=== PATIENT | male | born 1970 | race African-American/Black ===

== ENCOUNTER 2020-03-23 09:30 | Emergency (ER) | payer OTHER ==
--- OUTSIDE RECORDS SUMMARY | 2020-03-23 09:46 | XMS REPORT | Clinical Summary ---
:1970 Author Organization [facility] Address [address] [place] [address] Care Team Providers Name Role Phone Asked, Pcp Primary Care Provider Unavailable Allergies Active Allergy Reactions Severity Noted Date Comments Metoclopramide Hcl Other (See Comments) High 10/11/2017 H allucinations & Disorientation "makes me crazy" Medications Medication Sig Dispensed Refills Start Date End Date Status clonIDINE (CATAPRES) 0.1 Take 0.1 mg by 0 Active MG tablet mouth 3 (three) times a day. carvedilol (COREG) 25 MG Take 25 mg by 0 Active tablet mouth 2 (two) times a day. ergocalciferol (VITAMIN Take 50,000 0 Active D2) 50,000 unit capsule Units by mouth once a week. (on Friday) mycophenolate (CELLCEPT) Take 1,000 mg by 0 Active 500 mg tablet mouth 2 (two) times a day. tacrolimus (PROGRAF) 0.5 Take 2.5 mg by 0 Active MG capsule mouth 2 (two) times a day. insulin DETEMIR (LEVEMIR Inject 25 Units 15 mL 1 8 Active FLEXTOUCH U-100 INSULN) under the skin 100 unit/mL (3 mL) daily before insulin pen breakfast. insulin lispro (HUMALOG) Inject 4 Units 15 mL 1 12/21/2017 Active 100 unit/mL injection under the skin 3 pen (three) times a day before meals. Active Problems Problem Noted Date Diabetic ketoacidosis without coma associated with typ e 2 diabetes 12/19/2017 mellitus Vitamin D deficiency 10/13/2017 Hypertensive emergency 10/11/2017 Abdominal pain 10/11/2017 Nausea and vomiting 10/11/2017 Renal transplant recipient 10/11/2017 Diabetic ketoacidosis without coma associated with typ e 2 diabetes 10/11/2017 mellitus S/P kidney transplant 08/19/2016 Type 2 diabetes mellitus with other specified complica tion 08/19/2016 Hypertension 08/19/2016 Umbilical hernia 08/19/2016 Immunizations Name Administration Dates Next Due FLUCELVAX QUAD PF 10/13/2017 Family History Medical History Relation Name Comments Diabetes Father Hypertension Father Diabetes Maternal Grandmother Diabetes Mother Hypertension Mother Relation Name Status Comments Father Maternal Grandmother Mother Social History Tobacco Use Types Packs/Day Years Used Date Passive Smoke Exposure - Never Smoker Sex Assigned at Date Recorded Not on file Job Start Date Occupation Industry Not on file Not on file Not on file Travel History Travel Start Travel End No recent travel history available. Last Filed Vital Signs Not on file Plan of Treatment Health Maintenance Due Date Last Done Comments DIABETIC RETINAL EYE EXAM 1970 DIABETIC FOOT EXAM 1980 INFLUENZA VACCINE 04/01/2020 10/13/2017, 07/02/2013 Results Not on fileafter 03/23/2019 Insurance Payer Benefit Plan / Subscriber ID Effective Dates Phone Addre ss Type Group MEDICARE MEDICARE PART xxxxxxxxxx 2012-[place], [place] Medicare A AND B t Listen Up [employer] FIRST xxxxxxxxxxx 2015-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
--- OUTSIDE RECORDS SUMMARY | 2020-03-23 09:46 | XMS REPORT | Continuity of Care Document ---
:1970 Author Organization [facility] t Address [address] [place] [address] Care Team Providers Name Role Phone Asked, Pcp Primary Care Physician Unavailable Payers Payer Name Policy Type Policy Number Effective Date Expiration Date S ource Problems Condition Condition Condition Status Onset Resolution Last Treating Co mments Source Name Details Category Date Date Treatment Clinician Date Diabetic Diabetic Disease Active [place] ketoac[place] ketoacidos 4-20 Me [facility] is without is without 00:00: st coma coma 00 associated associated with type with type 2 diabetes 2 diabetes mellitus mellitus Vitamin D Vitamin D Disease Active [facility] deficiency deficiency 2-12 Me thodi 00:00: st 00 Hypertensi Hypertensi Disease Active [facility] [place] ve ve 2-10 [facility] emergency emergency 00:00: st 00 Abdominal Abdominal Disease Active [facility] pain pain 2-10 [facility] 00:00: st 00 Nausea and Nausea and Disease [facility] 00 Renal Renal Disease Active [place] transplant transplant 2-10 Me thodi recipient recipient 00:00: st 00 Diabetic Diabetic Disease Active [place] ketoacidos ketoacidos 2-10 Me thodi is without is without 00:00: st coma coma 00 associated associated with type with type 2 diabetes 2 diabetes mellitus mellitus S/P kidney S/P kidney Disease Active 2015-09 [facility] [place] transplant transplant 2-19 Me thodi 00:00: st 00 Type 2 Type 2 Disease Active 2015-09 [facility] diabetes diabetes -19 [facility] mellitus mellitus 00:00: st with other with other 00 specified specified complicati complicati on on Hypertensi Hypertensi Disease Active 2015-09 [facility] [place] on on 10-20 [facility] 00:00: st 00 Umbilical Umbilical Disease Active 2015-09 Vera marisoln hernia hernia 10-20 [facility] 00:00: st 00 Allergies, Adverse Reactions, Alerts Allergy Allergy Status Severity Reaction(s) Onset Inactive Treating Comm ents Source Name Type Date Date Clinician No Known DA Active U 2017-09 [facility] Allergie 0-15 Clear s 00:00: [place] 00 [facility] Metoclop Propensi Active Other (See Hallucina [place] ramide ty to Comments) 2- tions & Method i Hcl adverse 00:00: Disorient st reaction 00 ation s to "makes me drug crazy" Family History Family Member Diagnosis Comments Start Date Stop Date Source Natural father Diabetes [facility] Natural father Hypertension [place] [facility] Maternal grandmother Diabetes [place] [facility] Natural mother Diabetes [place] [facility] Natural mother Hypertension [place] [facility] Social History Social Habit Start Date Stop Date Quantity Comments Source Sex Assigned At Vera omid Boo Smoking Status Start Date Stop Date Source Never smoker [place] [facility] Medications Ordered Filled Start Stop Current Ordering Indication Dosage Frequency Signature Comments Components Source Medication Medication Date Date Medication? Clinician (SIG) Name Name clonIDINE Yes .1mg [id number] Take 0.1 [place] (CATAPRES) 4-22 [id number] mg by Ia thodi 0.1 MG 14:16: 3D mouth 3 st tablet 04 (three) times a day. carvedilol Yes 25mg Q.5D Take 25 mg H [place] (COREG) 25 4-22 by mouth 2 Met hodi MG tablet 14:16: (two) st 04 times a day. ergocalcife Yes [id number] Q7D Take [facility] ton rol 4-22 50,000 [facility] (VITAMIN 14:16: Units by st D2) 50,000 04 mouth once unit a week. capsule (on Friday) mycophenola Yes 1000mg Q.5D Take 1,000 [place] te 4-22 mg by [facility] (CELLCEPT) 14:16: mouth 2 st 500 mg 04 (two) tablet times a day. tacrolimus Yes 2.5mg Q.5D Take 2.5 [place] (PROGRAF) 4-22 mg by [facility] 0.5 MG 14:16: mouth 2 st capsule 04 (two) times a day. insulin 2017-0 Yes 25U QD Inject 25 [place] DETEMIR 4-22 Units [facility] (LEVEMIR 00:00: under the st FLEXTOUCH 00 skin daily U-100 before INSULN) 100 breakfast. unit/mL (3 mL) insulin pen insulin Yes 4U [id number] Inject 4 [place] lispro 4-22 [id number] Units Method i (HUMALOG) 00:00: 3D under the st 100 unit/mL 00 skin 3 injection (three) pen times a day before meals. Immunizations Ordered Immunization Filled Immunization Date Status Commen ts Source Name Name YARITZA CHICAS 2017-10-13 [facility] 00:00:00 Denominational Procedures This patient has no known procedures. Plan of Care Planned Activity Planned Date Details Comments Source Future Scheduled 2020-04-01 INFLUENZA VACCINE [place] [facility] 00:00:00 [code = INFLUENZA VACCINE] Future Scheduled 1980 DIABETIC FOOT EXAM [place] [facility] 00:00:00 [code = DIABETIC FOOT EXAM] Future Scheduled 1970 DIABETIC RETINAL EYE Veraabdirashid anne [facility]ational Test 00:00:00 EXAM [code = DIABETIC RETINAL EYE EXAM] Results This patient has no known results.
[2020-03-23] MEDS ORDERED: MORPHINE 4 MG/ML SYR ONE (10:02)
[2020-03-23] MEDS ORDERED: DIAZEPAM 5 MG TABLET ONE (10:02)
[2020-03-23] MEDS ORDERED: ONDANSETRON 4 MG (ODT) TAB ONE (10:02)
--- NOTE | 2020-03-23 10:22 | RAD REPORT ---
EXAM DESCRIPTION: CT - Stone Protocol - 03/23/2020 10:10 am CLINICAL HISTORY: Flank pain. back pain COMPARISON: CT ABDOMEN PELVIS WO CONTRAST dated 07/30/2015 TECHNIQUE: Axial images were obtained without oral or IV contrast. Lack of contrast limits solid org an and vascular assessment. The [id number]-cz-zizm spans the entirety of the system partially obscuring uppermost abdomen and lung bases. Coronal reformatted images were obtained and reviewed. All CT scans are performed using dose optimization technique as appropriate and may include automated exposure control or mA/KV adjustment according to patient size. FINDINGS: Ground-glass opacities are present in both lung bases. Imaged portions of the liver and spleen show no suspicious findings on non-contrast imaging.Cholecyst ectomy clips. The pancreas and adrenal glands are normal. No pathologic lymphadenopathy in the abdome n or pelvis. Large fat containing ventral hernia. Right lower quadrant transplant kidney is seen without hydronephrosis. Atrophic iroquois kidneys. No bowel obstruction, free air, free fluid or abscess. Appendectomy.Moderate atherosclerosis. No significant bony abnormality. IMPRESSION: Right lower quadrant transplant kidney without hydronephrosis or stone. Ground-glass opacities in both lung bases are suspicious for COVID infection. Suggest clinical correl ation. Large fat containing ventral hernia.
--- NOTE | 2020-03-23 11:07 | EDPHYS ---
Physician Documentation [facility] Name: Pj Zacarias Jr Age: 49 yrs Sex: Male : 1970 Arrival Date: 03/23/2020 Time: 09:33 Bed 5 Private MD: ED Physician Jann Hampton HPI: 03/23 09:49 This 49 yrs old Black Male presents to ER via Ambulatory with complaints of Back Pain. jmm 09:49 The patient presents with pain that is acute. Onset: The symptoms/episode jmm began/occurred today. The pain radiates to the right leg and left leg. Associated signs and symptoms: Pertinent negatives: incontinence, weakness. Modifying factors: The patient symptoms are alleviated by nothing, the patient symptoms are aggravated by movement. This is a 59 year old male with a history of dm, htn, that presents to the ED with complaints of lower back pain which radiates down both his legs. Denies bowel or bladder issues. Denies fever, abdominal pain or vomiting. . Historical: - Allergies: 09:38 NKA; sv - PMHx: 09:38 Diabetes - NIDDM; Gastroparesis; Hypertension; sv - PSHx: 09:38 Cholecystectomy; Knee surgery; Appendectomy; kidney transplant; sv - Immunization history:: Adult Immunizations up to date. - Social history:: Smoking status: Patient denies any tobacco usage or history of. ROS: 09:49 Constitutional: Negative for fever, chills, and weight loss, Cardiovascular: Negative jmm for chest pain, palpitations, and edema, Respiratory: Negative for shortness of breath, cough, wheezing, and pleuritic chest pain. 09:49 Back: Positive for pain with movement. 09:49 All other systems are negative. Exam: 09:49 Constitutional: This is a well developed, well nourished patient who is awake, alert, jmm and in no acute distress. Head/Face: atraumatic. Eyes: EOMI, no conjunctival erythema appreciated ENT: Moist Mucus Membranes Neck: Trachea midline, Supple Chest/axilla: Normal chest wall appearance and motion. Cardiovascular: Regular rate and rhythm. No edema appreciated Respiratory: Normal respirations, no respiratory distress appreciated Abdomen/GI: Non distended, soft 09:49 Skin: General appearance color normal MS/ Extremity: Moves all extremities, no obvious deformities appreciated, no edema noted to the lower extremities Neuro: Awake and alert, normal gait Psych: Behavior is normal, Mood is normal, Patient is cooperative and pleasant 09:49 Back: no midline tenderness, right and left paraspinal lumbar region tenderness. 09:49 Neuro: extensor hallucis longus intact bilaterally. 09:49 Psych: Behavior/mood is pleasant, cooperative. Vital Signs: 09:42 BP 163 / 75; Pulse 90; Resp 16; Temp 98.3(TE); Pulse Ox 98% on R/A; Weight 68.04 kg; ss Height 5 ft. 6 in. (167.64 cm); Pain 10/10; 10:15 BP 141 / 79; Pulse 80; Resp 16; Pulse Ox 98% ; sv 11:16 BP 138 / 77; Pulse 77; Resp 16; Pulse Ox 99% ; sv 09:42 Body Mass Index 24.21 (68.04 kg, 167.64 cm) ss MDM: 09:45 Patient medically screened. [facility] 11:05 Data reviewed: vital signs, nurses notes. Counseling: I had a detailed discussion with [facility] the patient and/or guardian regarding: the historical points, exam findings, and any diagnostic results supporting the discharge/admit diagnosis, radiology results, the need for outpatient follow up, to return to the emergency department if symptoms worsen or persist or if there are any questions or concerns that arise at home. ED course: Back pain has decreased in the ED. CT chest revealed ground glass opacities bilaterally. Patient currently has no fever or resp symptoms. Patient is given strict return precautions. Patient understood and agrees with the plan of care. . 03/23 10:42 Order name: COVID-19 [facility] 03/23 09:48 Order name: CT Stone Protocol; Complete Time: 10:24 [facility] Administered Medications: 10:01 Drug: morphine 4 mg {Note: rass0.} Route: IM; Site: right deltoid; sv 11:17 Follow up: Response: No adverse reaction; RASS: Alert and Calm (0) sv 10:01 Drug: Zofran (Ondansetron) 4 mg Route: PO; sv 11:17 Follow up: Response: No adverse reaction sv 10:01 Drug: Valium 5 mg Route: PO; sv 11:17 Follow up: Response: No adverse reaction sv Disposition: 11:57 Co-signature as Attending Physician, Jann Hampton MD I agree with the assessment and kdr plan of care. Disposition: 03/23/20 11:07 Discharged to Home. Impression: Low back pain. - Condition is Stable. - Discharge Instructions: COVID-19, Back Pain, Adult. - Prescriptions for Valium 5 mg Oral Tablet - take 1 tablet by ORAL route every 8 hours As needed; 20 tablet. - Medication Reconciliation Form, Thank You Letter, Antibiotic Education, Prescription Opioid Use form. - Follow up: Private Physician; When: 2 - 3 days; Reason: Recheck today's complaints, Continuance of care, Re-evaluation by your physician. Addendum: 03/27/2020 08:36 Addendum: Phone number not working, able to contact , notified of positive COVID-19 r n test, states at home, generalized weakness and mild sob. Told if worsens to seek care, given transplant status, may require admission.. Signatures: Dispatcher [employer] EDJaneth Olivia RN RN sv Rittger, Kevin, MD MD kdr Mickail, Joel, PA PA jmm Nieto, Roman, MD MD rn Maryan Seo RN RN ss Corrections: (The following items were deleted from the chart) 03/23 11:17 11:07 03/23/2020 11:07 Discharged to Home. Impression: Low back pain. Condition is sv Stable. Forms are Medication Reconciliation Form, Thank You Letter, Antibiotic Education, Prescription Opioid Use. Follow up: Private Physician; When: 2 - 3 days; Reason: Recheck today's complaints, Continuance of care, Re-evaluation by your physician. emagan
--- NOTE | 2020-03-23 11:07 | ER ---
Nurse's Notes [facility] Name: Pj Zacarias Jr Age: 49 yrs Sex: Male : 1970 Arrival Date: 03/23/2020 Time: 09:33 Bed 5 Private MD: Diagnosis: Low back pain Presentation: 03/23 09:42 Chief complaint: Patient states: low back pain that began last night. Denies injury. Coronavirus screen: Patient denies a cough. Patient denies shortness of breath or difficulty breathing. Patient denies measured and/or subjective temperature greater than 100.4F prior to today's visit. Patient denies travel on a cruise ship or to a country the [facility] currently lists as an affected area. Patient denies contact with known and/or suspected case of COVID-19. Ebola Screen: Patient denies exposure to infectious person. Patient denies travel to an Ebola-affected area in the 21 days before illness onset. Initial Sepsis Screen: Does the patient meet any 2 criteria? No. Patient's initial sepsis screen is negative. Does the patient have a suspected source of infection? No. Patient's initial sepsis screen is negative. Risk Assessment: Do you want to hurt yourself or someone else? Patient reports no desire to harm self or others. Onset of symptoms was March 22, 2020. 09:42 Method Of Arrival: Ambulatory 09:42 Acuity: LAZARUS 3 ss Historical: - Allergies: 09:38 NKA; sv - PMHx: 09:38 Diabetes - NIDDM; Gastroparesis; Hypertension; sv - PSHx: 09:38 Cholecystectomy; Knee surgery; Appendectomy; kidney transplant; sv - Immunization history:: Adult Immunizations up to date. - Social history:: Smoking status: Patient denies any tobacco usage or history of. Screenin:37 Abuse screen: Denies threats or abuse. Denies injuries from another. Nutritional sv screening: No deficits noted. Tuberculosis screening: No symptoms or risk factors identified. Fall Risk None identified. Assessment: 10:00 General: Appears in no apparent distress. uncomfortable, well developed, Behavior is sv calm, cooperative, appropriate for age. Pain: Complains of pain in back Pain radiates to right leg and left leg Pain currently is 10 out of 10 on a pain scale. Neuro: Level of Consciousness is awake, alert, obeys commands, Oriented to person, place, time, situation, Moves all extremities. Full function Gait is steady. Cardiovascular: Dialysis shunt: in the left arm. Respiratory: Airway is patent Respiratory effort is even, unlabored, Respiratory pattern is regular, symmetrical. Derm: Skin is pink, warm \T\ dry. 11:08 Reassessment: COVID-19 obtained. sv 11:16 Reassessment: Patient appears in no apparent distress at this time. Patient and/or sv family updated on plan of care and expected duration. Pain level reassessed. Patient is alert, oriented x 3, equal unlabored respirations, skin warm/dry/pink. Patient states feeling better. Patient states symptoms have improved. Vital Signs: 09:42 BP 163 / 75; Pulse 90; Resp 16; Temp 98.3(TE); Pulse Ox 98% on R/A; Weight 68.04 kg; ss Height 5 ft. 6 in. (167.64 cm); Pain 10/10; 10:15 BP 141 / 79; Pulse 80; Resp 16; Pulse Ox 98% ; sv 11:16 BP 138 / 77; Pulse 77; Resp 16; Pulse Ox 99% ; sv 09:42 Body Mass Index 24.21 (68.04 kg, 167.64 cm) ED Course: 09:33 Patient arrived in ED. fj1 09:35 Janeth Marin, NORA is Primary Nurse. sv 09:37 Vito Cheung PA is PHCP. jmm 09:37 Arm band placed on. sv 09:37 Patient has correct armband on for positive identification. Bed in low position. Call sv light in reach. Pulse ox on. NIBP on. 09:38 Jann Hapmton MD is Attending Physician. jmm 09:43 Nurse Practitioner and/or Physician Spray Worker to see patient. sv 09:43 Triage completed. ss 10:[address] Scan. sv 10:09 CT Stone Protocol In Process Unspecified. EDMS 10:15 Awaiting radiology results. sv 11:16 No provider procedures requiring assistance completed. Patient did not have IV access sv during this emergency room visit. Administered Medications: 10:01 Drug: morphine 4 mg {Note: rass0.} Route: IM; Site: right deltoid; sv 11:17 Follow up: Response: No adverse reaction; RASS: Alert and Calm (0) sv 10:01 Drug: Zofran (Ondansetron) 4 mg Route: PO; sv 11:17 Follow up: Response: No adverse reaction sv 10:01 Drug: Valium 5 mg Route: PO; sv 11:17 Follow up: Response: No adverse reaction sv Outcome: 11:07 Discharge ordered by . meagan 11:16 Discharged to home ambulatory. sv 11:16 Condition: stable 11:16 Discharge instructions given to patient, Instructed on discharge instructions, follow up and referral plans. no drinking with medication, no driving heavy equipment, medication usage, Demonstrated understanding of instructions, follow-up care, medications, Prescriptions given X 1. 11:17 Patient left the ED. sv Addendum: 03/25/2020 13:05 Addendum: COVID-19 Result: Positive result giiven to ED physician to notify pt. h b Physician attempted to contact pt but the phone number provided was either not a working number or they were unable to leave a voice mail. 03/27/2020 08:52 Addendum: COVID-19 Result: Positive result giiven to ED physician to notify pt. s s Physician was able to contact pt and pt was notified of positive COVID-19 swab result. Physician answered pt questions. Physician attempted to contact pt. Other: Dr. Issa spoke to . Signatures: Dispatcher [employer] Janeth Silva, RN NORA Vito Cheung PA PA jmm Smirch, Shelby, RN RN Janine Mandel RN RN hb James, Frank fj1 Corrections: (The following items were deleted from the chart) 03/23 10:01 10:01 morphine 4 mg IM in right deltoid sv sv 11:16 11:16 Reassessment: Patient appears in no apparent distress at this time. No changes sv from previously documented assessment. Patient and/or family updated on plan of care and expected duration. Pain level reassessed. Patient is alert, oriented x 3, equal unlabored respirations, skin warm/dry/pink. sv
[2020-03-23 11:29] VITALS: TEMP 98.3
[2020-03-23 11:30] VITALS: BP 138/77; O2SAT 99
== END 2020-03-23 11:17 | disposition home or self-care (01) ==
LOC: ER 09:30
DX: U07.1 COVID-19 (principal); I10 Essential (primary) hypertension; Z94.0 Kidney transplant status
CPT/HCPCS: 74176; 76377; 96372; 99284; U0001